=== PATIENT | female | born 1965 | race Caucasian/White ===

== ENCOUNTER → 2017-07-25 | Outpatient (CLI) | payer OTHER ==
--- NOTE | 2017-07-27 08:26 | Diagnostic Imaging Report ---
Bilateral screening mammogram 2D views with tomosynthesis The current study was also evaluated with a Computer Aided Detection (CAD) system. INDICATION: Screening. No current complaints stated on the questionnaire. COMPARISON: 07/07/15. FINDINGS: The breasts are composed of scattered fibroglandular densities. Circumscribed subcentimeter nodules are again seen in each breast without significant change from the prior exam. Allowing for technique and positional differences, no suspicious change is seen. IMPRESSION: No significant change. ACR BI-RADS Category 2: Benign findings. Result letter will be mailed to the patient. Note: At least 10% of breast cancer is not imaged by mammography. Dictated by: Dictated on workstation # [id number]
== END ==
LOC: RAD 11:10
PROVIDERS: ATTEND Obstetrics & Gynecology
DX: Z12.31 Encounter for screening mammogram for malignant neoplasm of breast (principal)
CPT/HCPCS: 77067

== ENCOUNTER → 2019-08-05 | Outpatient (CLI) | payer OTHER ==
--- NOTE | 2019-08-06 08:05 | Diagnostic Imaging Report ---
Bilateral screening mammograms This study was compared to the prior exams of 07/25/2017, 07/07/2015, 08/29/2013 and 02/24/2013. At this time there are no current complaints. The current study was also evaluated with a Computer Aided Detection (CAD) system. FINDINGS: There are scattered fibroglandular densities in both breasts which could obscure a lesion. Overall, there does not appear to have been any significant change when compared to the prior exam. No primary or secondary sign of malignancy is noted. IMPRESSION: There is no radiographic evidence for malignancy. ACR BI-RADS Category 1: Negative. Result letter will be mailed to the patient. Note: At least 10% of breast cancer is not imaged by mammography. Dictated by: Dictated on workstation # [id number]
== END ==
LOC: RAD 09:51
PROVIDERS: ATTEND Obstetrics & Gynecology
DX: Z12.31 Encounter for screening mammogram for malignant neoplasm of breast (principal)
CPT/HCPCS: 77067

== ENCOUNTER → 2021-03-04 | Outpatient (CLI) | payer OTHER ==
--- NOTE | 2021-03-04 18:24 | Diagnostic Imaging Report ---
PROCEDURE: MRI left joint lower extremity without contrast. TECHNIQUE: Multiplanar, multisequence non contrast-enhanced MRI of the left lower extremity was accomplished. INDICATION: Knee pain There are no prior studies available for comparison. On the sagittal proton dense fat saturated series there are vague areas of increased signal within the substance of both the anterior and posterior horns of the lateral meniscus. The abnormal signal involving the posterior horn does appear to communicate with the articular surface and consequently I do suspect that this is a tear. There is also increased signal within the substance of the posterior horn of the medial meniscus but this does not clearly involve the articular surface. Even so, this finding is suspicious for a tear as well. The anterior and posterior cruciate ligament, quadriceps and infrapatellar tendons, the collateral ligaments, the biceps femoris tendon and the iliotibial band are intact. On the coronal STIR series, there is a vague area of increased signal along the medial aspect of the subarticular region of the proximal tibia. This finding does suggest bone edema and may be related to recent contusion. Degenerative disease could also present in this manner. There is no other abnormal signal arising from the osseous structures to suggest bone edema or a fracture. There is at least moderate degenerative disease involving the articular surface of the medial femoral condyle and mild degenerative disease of the articular surface of the lateral femoral condyle. The patellofemoral space is fairly well-maintained. There is a small joint effusion present. There is also a 1.4 x 5.0 cm slightly septated Vernon's cyst. The axial T2 fat saturated series also shows some increased signal in the soft tissues inferior to the Vernon's cyst. This could be related to edema/inflammation related to the partial rupture of the cyst. IMPRESSION: 1. The posterior horn of the lateral meniscus is torn. There may also be a tear involving the posterior horn of the medial meniscus. 2. The major ligaments and tendons are intact. 3. There is an area of bone edema along the medial aspect of the proximal tibia. Whether this is secondary to recent trauma or to degenerative disease is not certain. 4. There is a small joint effusion present. There is also a septated large Vernon's cyst. 5. The abnormal signal in the musculature along the inferior margin of the Vernon's cyst may be related to edema/inflammation secondary to partial rupture of the cyst. Dictated by: Dictated on workstation # [id number]
== END ==
LOC: RAD 15:30
PROVIDERS: ATTEND Nurse Practitioner
DX: S83.222A Peripheral tear of medial meniscus, current injury, left knee, initial encounter (principal); S83.262A Peripheral tear of lateral meniscus, current injury, left knee, initial encounter; M71.22 Synovial cyst of popliteal space [Baker], left knee; X58.XXXA Exposure to other specified factors, initial encounter
CPT/HCPCS: 73721

== ENCOUNTER 2021-03-16 06:12 | Outpatient (CLI) | payer OTHER ==
[~2021-03-16] VITALS: Ht 172.7 cm; Wt 106.8 kg
[2021-03-16] MEDS ORDERED: SYNTEST.HS PO (14:43)
[2021-03-16] MEDS ORDERED: CETI10TA17 PO (14:43)
[2021-03-16] MEDS ORDERED: ATOR10TA66 PO (14:43)
== END 2021-03-16 14:58 | disposition home or self-care (01) ==
LOC: PREOP 06:12
PROVIDERS: ATTEND Orthopaedic Surgery
DX: Z01.818 Encounter for other preprocedural examination (principal)

== ENCOUNTER 2021-03-23 09:54 | Day surgery (SDC) | payer OTHER ==
--- NOTE | 2021-03-16 06:50 | HISTORY AND PHYSICAL ---
DATE OF SERVICE: ADMISSION HISTORY AND PHYSICAL DATE OF ADMISSION: 03/23/2021 This will be for outpatient surgery on 03/23/2021 for left knee arthroscopy. HISTORY OF PRESENT ILLNESS: The patient is a 55-year-old female, who injured her left knee approximately two months ago, she tripped over her dog and she twisted and had immediate pain. A week later, she was walking, had a painful pop with increased swelling and has had increased symptoms since. Knee was having no problems prior to her injury. She has tried brace and activity modifications without improvement. She underwent an MRI, which revealed a medial and lateral meniscus tear. Due to functional impairment and failure to improve with conservative measures, the patient elected to proceed with surgical intervention. REVIEW OF SYSTEMS: No chest pain, no shortness of breath, no dysuria. PAST MEDICAL HISTORY: Hypercholesterolemia. PAST SURGICAL HISTORY: Cholecystectomy, appendectomy, hysterectomy and tonsillectomy. FAMILY HISTORY: Noncontributory. MEDICATIONS: Estrogen, atorvastatin. ALLERGIES: No known drug allergies. SOCIAL HISTORY: The patient denies alcohol, tobacco use. RADIOGRAPHS: Reveal mild diffuse joint space narrowing. PHYSICAL EXAMINATION: GENERAL: The patient is well-developed, well-nourished, in no acute distress. HEENT: Normocephalic, atraumatic. Pupils are equal, round and reactive to light. Oropharynx is clear. NECK: Supple, with no lymphadenopathy. LUNGS: Clear to auscultation bilaterally. HEART: Regular rate and rhythm. ABDOMEN: Soft, nontender, nondistended. EXTREMITIES: The left knee demonstrates mild effusion. Range of motion is 0/0/130. She has negative Ernst, negative anterior and posterior drawer. No varus or valgus laxity. She is tender along the medial and lateral joint lines and has marked pain medially with Edvin's. IMPRESSION: Left knee medial and lateral meniscus tears. PLAN: Left knee arthroscopy with partial meniscectomy, and possible chondroplasty. The risks, benefits, options, ramifications and recovery were discussed at length with the patient. She understands and wishes to proceed. Job ID: [id number] DocumentID: [id number] Dictated Date: 03/10/2021 11:39:54 Hotel [employer] D[employer] Room Cashier Date: 03/10/2021 11:54:36 Dictated By: SELMA YOUNG MD
[2021-03-23] VITALS (10 sets, daily range): BP systolic 93–147; BP diastolic 53–86
[~2021-03-23] VITALS: Ht 172 cm; Wt 106.8 kg
[~2021-03-23 09:54] MED LIST: ATOR10TA66 PO; CETI10TA17 PO; HYDROcodone/APAP 7.5 MG/325 MG (LORTAB, LORCET PLUS) TABLET PO PRN; SYNTEST.HS PO
[2021-03-23] MEDS ORDERED: ceFAZolin INJECTION 1,000 MG in WATER (STERILE) FOR INJECTION 10 ML IV ONE (10:00)
[2021-03-23] MEDS: LACTATED RINGERS 1,000 ML IV PRN ×2 (10:37→12:29)
--- NOTE | 2021-03-23 11:02 | Progress Note-Pre Operative ---
Pre-Operative Progress Note H&P Reviewed The H&P was reviewed, patient examined and no changes noted. 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
--- NOTE | 2021-03-23 11:03 | Progress Note-Post Operative ---
Post-Operative Progess Note Surgeon (s)/Business Development Executive (s) Surgeon SELMA YOUNG MD Business Development Executive: Eleazar Escobar Pre-Operative Diagnosis left knee medial and lateral meniscus tears and chondromalacia Post-Operative Diagnosis left knee medial and lateral meniscus tears and chondromalacia of the medial femoral condyle, medial and lateral tibial plateau and trochlea Procedure & Operative Findings Date of Procedure 03/23/21 Procedure Performed/Findings left knee arthroscopic partial medial and lateral meniscectomies and chondroplasty of the medial femoral condyle, medial tibial plateau, lateral tibial plateau and trochlea Anesthesia Type GETA Estimated Blood Loss Estimated blood loss (mL): minimal Specimens/Packing Specimens Removed none Packing: none SELMA YOUNG MD Mar 23, 2021 11:03
[2021-03-23] MEDS ORDERED: BUPIVACAINE 0.25% 30 ML (SENSORCAINE) VIAL ONE (12:10)
[2021-03-23] MEDS ORDERED: morphine PF (DURAMORPH) 10 MG/10 ML AMP ONE (12:10)
[2021-03-23] MEDS ORDERED: ONDANSETRON 4 MG/2 ML (SDV) Z0FRAN ONE (12:21)
[2021-03-23] MEDS ORDERED: fentaNYL INJ 100 MCG/2 ML AMP ONE (12:21)
[2021-03-23] MEDS ORDERED: proPOfol 200 MG/20 ML (DIPRIVAN) VIAL IV ONE (12:21)
[2021-03-23] MEDS ORDERED: LIDOCAINE PF 2% 5 ML (XYLOCAINE) VIAL ONE (12:21)
[2021-03-23] MEDS ORDERED: MIDAZOLAM 2 MG/2 ML (VERSED) VIAL ONE (12:21)
--- NOTE | 2021-03-23 13:56 | Physical Therapy Progress Note ---
Therapy Progress Note Spouse reports patient has established crutches and good knowledge of use. Patient's spouse declined PT intervention. Nursing notified. JUNIE DIAMOND PT Mar 23, 2021 13:56
--- NOTE | 2021-03-23 14:58 | Anesthesia-General Post-Op ---
General Patient Condition Mental Status/LOC: Same as Preop Cardiovascular: Satisfactory Nausea/Vomiting: Absent Respiratory: Satisfactory Pain: Controlled Complications: Absent Post Op Complications Complications None Follow Up Care/Instructions Patient Instructions None needed. Anesthesia/Patient Condition Patient Condition Patient is doing well, no complaints, stable vital signs, no apparent adverse anesthesia problems. No complications reported per nursing. JIMMY LOPEZ CRNA Mar 23, 2021 14:58
--- NOTE | 2021-03-23 14:58 | Physical Therapy Progress Note ---
Therapy Progress Note Reviewed use of single or double crutch with patient. Reviewed WBAT. Educated on use of ice for pain managment. Reviewed HEP of QS, SLR and heel slide. Educated pt and spouse on crutch height adjustment. Pt verbalized understanding of all. GRACE PENA PT Mar 23, 2021 14:58
--- NOTE | 2021-03-23 18:58 | OPERATIVE REPORT ---
DATE OF SERVICE: 03/23/2021 PREOPERATIVE DIAGNOSES: 1. Left knee medial meniscus tear. 2. Left knee lateral meniscus tear. POSTOPERATIVE DIAGNOSES: 1. Left knee medial meniscus tear. 2. Left knee lateral meniscus tear. 3. Left knee chondromalacia of the medial femoral condyle. 4. Left knee chondromalacia of the medial tibial plateau. 5. Left knee chondromalacia of the lateral tibial plateau. 6. Left knee chondromalacia of the trochlea. PROCEDURES: 1. Left knee arthroscopic partial medial meniscectomy. 2. Left knee arthroscopic partial lateral meniscectomy. 3. Left knee arthroscopic chondroplasty of the medial femoral condyle. 4. Left knee arthroscopic chondroplasty of the medial tibial plateau. 5. Left knee arthroscopic chondroplasty of lateral tibial plateau. 6. Left knee arthroscopic chondroplasty of the trochlea. SURGEON: Jesse Young MD ELECTRICIAN SHIP: Eleazar Escobar, who assisted throughout the procedure and closed the incisions. ANESTHESIA: General endotracheal by Mariah Mariee CRNA. TOURNIQUET TIME: Not applicable. ESTIMATED BLOOD LOSS: Minimal. DRAINS: None. COMPLICATIONS: None. POSTOPERATIVE PLAN: Routine arthroscopy protocol. The patient was transferred to the recovery room awake and in stable condition. STATEMENT OF MEDICAL NECESSITY: The patient is a 55-year-old female with complaints of left knee pain, catching, locking and swelling. She underwent an MRI, which revealed evidence of medial and lateral meniscus tear. She tried rest, activity modifications, and anti-inflammatories without relief and due to functional impairment and failure to improve with conservative measures, the patient elected to proceed with surgical intervention. Examination under anesthesia revealed range of motion of 0/0/135 with negative Ernst, negative anterior and posterior drawer. No varus valgus laxity, negative pivot shift. Arthroscopic findings, the patella demonstrated grade II chondral softening anteriorly in a 10 x 10 area. Trochlea demonstrated grade II chondral flap superiorly in a 10 x 10 area. The medial and lateral gutters were clear. The ACL and PCL were intact. The medial compartment demonstrated a horizontal cleavage tear of the posterior horn of the medial meniscus involving approximately one-third of the posterior horn. In addition, there were grade II to III chondral flaps of the central portion of the femoral condyle in a 15 x 10 area and grade II chondral flaps of the central portion of the tibial plateau in a 10 x 10 area. The lateral compartment demonstrated a flap tear of the body of the lateral meniscus around approximately one-third of the body and grade II chondral flaps of the central portion of the tibial plateau in an 8 x 8 area. PROCEDURE IN DETAIL: After risks and benefits of procedure were discussed and questions were answered, informed consent was signed and placed on chart. The operative site was confirmed in the preoperative holding area initialed by the surgeon. The patient was then transferred to the operating room and after adequate levels of general endotracheal anesthetic were obtained, a timeout was called, confirming the operative site. Examination under anesthesia was performed with above findings noted. The left lower extremity was prepped and draped in the usual sterile fashion. Knee joint was injected with 60 mL fluid and standard inferolateral portal placed with arthroscope. Under direct visualization, inferior medial portal was created. The menisci and cruciates carefully probed with above findings noted. The unstable chondral flaps in the trochlea were debrided with shaver back to a stable edge. The scope was then redirected into the lateral compartment where the lateral meniscus tear was debrided with a shaver back to a stable edge and the chondral flaps in lateral tibial plateau were debrided with a shaver back to a stable edge. Scope was redirected into the medial compartment where the medial meniscus tear was debrided with a biter and shaver back to a stable edge. This was carefully probed with no further tearing or instability noted. The unstable chondral flaps in the medial femoral condyle and medial tibial plateau were debrided with a shaver back to a stable edge. Knee was copiously irrigated. Port sites were closed with 4-0 nylon in fashion. Knee was injected with Duramorph. Port sites were infiltrated with plain Marcaine. A soft dressing was applied. The patient was transferred to the recovery room awake and in stable condition. Job ID: [id number] DocumentID: [id number] Dictated Date: 03/23/2021 13:11:03 Cardiothoracic Surgeon Date: 03/23/2021 18:58:08 Dictated By: JESSE YOUNG MD
== END 2021-03-23 15:05 | disposition home or self-care (01) ==
LOC: SDC 09:54
PROVIDERS: ATTEND Orthopaedic Surgery
DX: S83.282A Other tear of lateral meniscus, current injury, left knee, initial encounter (principal); S83.242A Other tear of medial meniscus, current injury, left knee, initial encounter; M94.262 Chondromalacia, left knee; E78.5 Hyperlipidemia, unspecified; E78.00 Pure hypercholesterolemia, unspecified; Z90.49 Acquired absence of other specified parts of digestive tract; Z90.89 Acquired absence of other organs; Z79.899 Other long term (current) drug therapy; Z90.710 Acquired absence of both cervix and uterus
CPT/HCPCS: 87081

== ENCOUNTER → 2021-07-07 | Outpatient (CLI) | payer OTHER ==
[~2021-07-07] MED LIST changes: -HYDROcodone/APAP 7.5 MG/325 MG (LORTAB, LORCET PLUS) TABLET PO PRN
--- NOTE | 2021-07-07 14:58 | Diagnostic Imaging Report ---
Digital mammogram. Indication: Bilateral screening This study was compared to the prior exam of 08/05/2019 and 07/25/2017. At this time there are no current complaints. The current study was also evaluated with a Computer Aided Detection (CAD) system. FINDINGS: The fibroglandular tissue in both breasts is heterogeneously dense. This does limit the sensitivity of this exam. Overall, there does not appear to have been any significant change when compared to the prior study. No primary or secondary sign of malignancy is noted. IMPRESSION: 1. There is no radiographic evidence for malignancy. 2. Patient should have her annual bilateral screening mammogram on schedule in June of 2022. ACR BI-RADS Category 1: Negative. Result letter will be mailed to the patient. Note: At least 10% of breast cancer is not imaged by mammography. Dictated by: Dictated on workstation # [id number]
== END ==
LOC: RAD 10:15
PROVIDERS: ATTEND Obstetrics & Gynecology
DX: Z12.31 Encounter for screening mammogram for malignant neoplasm of breast (principal)
CPT/HCPCS: 77063; 77067

== ENCOUNTER → 2021-09-09 | Outpatient (CLI) | payer OTHER ==
--- NOTE | 2021-09-09 13:02 | Diagnostic Imaging Report ---
INDICATION: Left leg pain. Left leg venous Doppler study was performed in the routine fashion with color flow Doppler and waveform analysis. FINDINGS: The left common femoral vein, superficial femoral vein, popliteal vein and visualized portion of the posterior tibial vein show normal compressibility and venous flow patterns. There is normal augmentation. IMPRESSION: No evidence of deep vein thrombosis of the major veins of the left leg. Dictated by: Dictated on workstation # [id number]
== END ==
LOC: LAB 11:12
PROVIDERS: ATTEND Nurse Practitioner Family
DX: M79.605 Pain in left leg (principal); R60.0 Localized edema; R22.42 Localized swelling, mass and lump, left lower limb
CPT/HCPCS: 36415; 85379

== ENCOUNTER → 2021-09-19 | Outpatient (CLI) | payer OTHER | LOC: CARD 14:30 | PROVIDERS: ATTEND Nurse Practitioner Family | DX: I51.7 Cardiomegaly (principal); M79.605 Pain in left leg; R60.0 Localized edema; R79.1 Abnormal coagulation profile | CPT/HCPCS: 93306 ==

== ENCOUNTER → 2021-11-14 | Outpatient (CLI) | payer OTHER ==
[2021-11-14 10:17] LABS: BASOPHILS # (AUTO) 0.1 10^3/uL (0.0-0.1); BASOPHILS % (AUTO) 1 % (0-10); EOSINOPHILS # (AUTO) 0.2 10^3/uL (0.0-0.3); EOSINOPHILS % (AUTO) 2 % (0-10); HEMATOCRIT 41 % (35-52); HEMOGLOBIN 12.5 g/dL (11.5-16.0); LYMPHOCYTES # (AUTO) 2.1 10^3/uL (1.0-4.0); LYMPHOCYTES % (AUTO) 22 % (12-44); MEAN CORPUSCULAR HEMOGLOBIN 26 pg (25-34); MEAN CORPUSCULAR HGB CONC 30 g/dL (32-36); MEAN CORPUSCULAR VOLUME 84 fL (80-99); MEAN PLATELET VOLUME 11.4 fL (9.0-12.2); MONOCYTES # (AUTO) 0.7 10^3/uL (0.0-1.0); MONOCYTES % (AUTO) 7 % (0-12); NEUTROPHILS # (AUTO) 6.5 10^3/uL (1.8-7.8); NEUTROPHILS % (AUTO) 68 % (42-75); PLATELET COUNT 299 10^3/uL (130-400); WHITE BLOOD COUNT 9.6 10^3/uL (4.3-11.0)
[2021-11-14 10:42] LABS: BILIRUBIN,TOTAL 0.4 MG/DL (0.1-1.0); CALCIUM 8.9 MG/DL (8.5-10.1); CREATININE SERUM 0.97 MG/DL (0.60-1.30); POTASSIUM 4.1 MMOL/L (3.6-5.0); TOTAL PROTEIN 7.2 GM/DL (6.4-8.2)
== END ==
LOC: LAB 09:33
PROVIDERS: ATTEND Internal Medicine
DX: Z00.00 Encounter for general adult medical examination without abnormal findings (principal); R73.9 Hyperglycemia, unspecified; R79.1 Abnormal coagulation profile
CPT/HCPCS: 36415; 80053; 83036; 85025; 85379

== ENCOUNTER → 2022-11-13 | Outpatient (CLI) | payer OTHER ==
--- NOTE | 2022-11-14 11:40 | Diagnostic Imaging Report ---
INDICATION: Routine screening. COMPARISON: 07/07/2021 and 08/05/2019. TECHNIQUE: 2D and 3D bilateral screening mammography was performed with CAD. FINDINGS: Scattered fibroglandular densities are identified bilaterally. A small nodule in the left breast inferiorly appears stable. No new mass or malignant-appearing microcalcifications are seen. The axillae are unremarkable. IMPRESSION: No mammographic features suspicious for malignancy are identified. ACR BI-RADS Category 2: Benign findings. Result letter will be mailed to the patient. Note: At least 10% of breast cancer is not imaged by mammography. Dictated by: Dictated on workstation # [id number]
== END ==
LOC: RAD 14:45
PROVIDERS: ATTEND Internal Medicine
DX: Z12.31 Encounter for screening mammogram for malignant neoplasm of breast (principal)
CPT/HCPCS: 77063; 77067

== ENCOUNTER 2022-12-26 10:17 | Outpatient (RCR) | payer OTHER ==
[2022-12-26 10:30] VITALS: BP 115/68
[2022-12-26] MEDS ORDERED: FERRIC CARBOXYMALTOSE INJ 750 MG in NS (IVPB) 250 ML IV SCH (10:45)
== END 2023-01-07 | disposition home or self-care (01) ==
LOC: SDC 10:17
PROVIDERS: ATTEND Internal Medicine
DX: E61.1 Iron deficiency (principal)

== ENCOUNTER → 2023-01-10 | Outpatient (CLI) | payer OTHER ==
[2023-01-10 14:59] LABS: BASOPHILS % (AUTO) 0 % (0-10); EOSINOPHILS # (AUTO) 0.2 10^3/uL (0.0-0.3); EOSINOPHILS % (AUTO) 2 % (0-10); HEMATOCRIT 41 % (35-52); HEMOGLOBIN 12.7 g/dL (11.5-16.0); LYMPHOCYTES # (AUTO) 2.3 X 10^3 (1.0-4.0); LYMPHOCYTES % (AUTO) 24 % (12-44); MEAN CORPUSCULAR HEMOGLOBIN 26 pg (25-34); MEAN CORPUSCULAR HGB CONC 31 g/dL (32-36); MEAN CORPUSCULAR VOLUME 84 fL (80-99); MEAN PLATELET VOLUME 11.1 fL (9.0-12.2); MONOCYTES # (AUTO) 0.7 X 10^3 (0.0-1.0); MONOCYTES % (AUTO) 7 % (0-12); NEUTROPHILS # (AUTO) 6.5 X 10^3 (1.8-7.8); NEUTROPHILS % (AUTO) 67 % (42-75); PLATELET COUNT 271 10^3/uL (130-400); WHITE BLOOD COUNT 9.7 10^3/uL (4.3-11.0)
== END ==
LOC: LAB 14:20
PROVIDERS: ATTEND Internal Medicine
DX: D50.8 Other iron deficiency anemias (principal)
CPT/HCPCS: 36415; 82728; 83540; 83550; 85025

== ENCOUNTER 2023-01-11 10:11 | Outpatient (RCR) | payer OTHER ==
[~2023-01-11] VITALS: Wt 106.8 kg
[2023-01-11] MEDS ORDERED: FERRIC CARBOXYMALTOSE INJ 750 MG in NS (IVPB) 250 ML IV SCH (10:30)
[2023-01-11 10:49] VITALS: BP 143/88
== END 2023-02-07 | disposition home or self-care (01) ==
LOC: SDC 10:11
PROVIDERS: ATTEND Internal Medicine
DX: E61.1 Iron deficiency (principal)
CPT/HCPCS: 96365